=== PATIENT | male | born 1990 | race African-American/Black ===

== ENCOUNTER 2025-01-20 10:02 | Emergency (ER) | payer MEDICAID ==
[~2025-01-20] VITALS: Ht 170.2 cm; Wt 63.5 kg
[~2025-01-20 10:02] MED LIST: INSU100I28 SQ; NIFE-32 MT
[2025-01-20 10:04] VITALS: BP 138/88; TEMP 36.7; O2SAT 99
[2025-01-20 10:05] VITALS: PULSE 96; RESP 20; O2SAT 98
[2025-01-20 10:51] LABS: BASOPHILS % 0.5 % (0.0-2.0); EOSINOPHILS % 0.3 % (0.0-5.0); HEMATOCRIT. 38.9 % (42.0-52.0); HEMOGLOBIN. 13.1 g/dL (14.0-18.0); LYMPHOCYTES % 23.4 % (20.0-50.0); MEAN CORPUSCULAR HEMOGLOBIN 30.2 pg (28.0-32.0); MEAN CORPUSCULAR HGB CONC 33.7 g/dL (31.0-37.0); MEAN CORPUSCULAR VOLUME 89.8 fL (80.0-94.0); MONOCYTES % 3.6 % (2.0-8.0); NEUTROPHILS % 72.2 % (40.0-76.0); PLATELET 214 x1000/uL (130-400); RED BLOOD CELL COUNT 4.33 mill/uL (4.7-6.1); RED CELL DISTRIBUTION WIDTH 12.8 % (11.6-14.6); WHITE BLOOD COUNT 5.7 x1000/uL (4.5-11.0)
[2025-01-20 11:02] LABS: CHLORIDE 104 mEq/L (98-107); POTASSIUM 3.8 mEq/L (3.5-5.1); SODIUM 140 mEq/L (136-145)
[2025-01-20 11:03] LABS: CARBON DIOXIDE 26 mEq/L (21-32)
[2025-01-20 11:08] LABS: CREATININE 1.1 mg/dL (0.6-1.3); GLUCOSE 288 mg/dL (70-105)
[2025-01-20 11:09] LABS: UREA NITROGEN BLOOD 14 mg/dL (9-23)
[2025-01-20 11:34] LABS: TROPONIN I HIGH SENSITIVITY < 4 ng/L (3.0-53)
== END 2025-01-20 12:08 | disposition home or self-care (01) ==
LOC: ER 10:02
DX: R07.89 Other chest pain (principal); E11.65 Type 2 diabetes mellitus with hyperglycemia; I10 Essential (primary) hypertension; Z79.4 Long term (current) use of insulin
CPT/HCPCS: 36415; 71045; 80048; 83880; 84484; 85025; 93005; 99285